=== PATIENT | male | born 1950 | race African-American/Black ===

== ENCOUNTER 2021-10-25 21:02 | Emergency (ER) | payer OTHER ==
[~2021-10-25] VITALS: Ht 177.8 cm; Wt 90.0 kg
[2021-10-25] MEDS ORDERED: LIDOCAINE 5% PATCH TOP SCH (22:00)
[2021-10-25] MEDS ORDERED: IBUPROFEN 400MG TABLET PO ONE (22:00)
[2021-10-25] MEDS ORDERED: METHOCARBAMOL 750MG TABLET PO SCH (22:00)
[2021-10-25] MEDS ORDERED: ACETAMINOPHEN 325MG TABLET PO ONE (22:00)
[2021-10-25 23:01] VITALS: BP 133/98
[2021-10-25] MEDS ORDERED: IBUP-2028 MT (23:26)
[2021-10-25] MEDS ORDERED: LIDO1ADH23 TP (23:26)
[2021-10-25] MEDS ORDERED: METH-653 MT (23:26)
[2021-10-25] MEDS ORDERED: TOPUD PO (23:26)
== END 2021-10-25 23:51 | disposition home or self-care (01) ==
LOC: ER 21:02
DX: R07.89 Other chest pain (principal); E11.9 Type 2 diabetes mellitus without complications; V49.49XA Driver injured in collision with other motor vehicles in traffic accident, initial encounter; Y93.89 Activity, other specified; Y92.89 Other specified places as the place of occurrence of the external cause; Y99.8 Other external cause status
CPT/HCPCS: 71045; 93005; 99284

== ENCOUNTER 2024-03-27 12:32 | Emergency (ER) | payer OTHER ==
[~2024-03-27] VITALS: Ht 182.9 cm; Wt 116.0 kg
[~2024-03-27 12:32] MED LIST: IBUP-2028 MT; LIDO1ADH23 TP; METH-653 MT; TOPUD PO
[2024-03-27 12:33] VITALS: O2SAT 100
[2024-03-27 13:00] VITALS: TEMP 36.83628
[2024-03-27 13:19] LABS: BASOPHILS % 0.6 % (0.0-2.0); EOSINOPHILS % 2.4 % (0.0-5.0); HEMATOCRIT. 40.2 % (42.0-52.0); HEMOGLOBIN. 13.3 g/dL (14.0-18.0); LYMPHOCYTES % 30.9 % (20.0-50.0); MEAN CORPUSCULAR HEMOGLOBIN 30.9 pg (28.0-32.0); MEAN CORPUSCULAR HGB CONC 33.1 g/dL (31.0-37.0); MEAN CORPUSCULAR VOLUME 93.5 fL (80.0-94.0); MEAN PLATELET VOLUME 9.2 fl (7.4-10.4); MONOCYTES % 10.7 % (2.0-8.0); NEUTROPHILS % 55.4 % (40.0-76.0); PLATELET 218 x1000/uL (130-400); RED CELL DISTRIBUTION WIDTH 13.1 % (11.6-14.6)
[2024-03-27 13:32] LABS: CHLORIDE 106 mEq/L (98-107); SODIUM 139 mEq/L (136-145)
[2024-03-27 13:33] LABS: CALCIUM 9.3 mg/dL (8.7-10.4); CARBON DIOXIDE 27 mEq/L (21-32)
[2024-03-27 13:38] LABS: CREATININE 1.2 mg/dL (0.6-1.3); GLUCOSE 153 mg/dL (70-105); UREA NITROGEN BLOOD 25 mg/dL (9-23)
[2024-03-27 13:39] LABS: TROPONIN I HIGH SENSITIVITY 6 ng/L (3.0-53)
[2024-03-27 13:42] LABS: T4 FREE 1.07 ng/dL (0.89-1.76); THYROID STIMULATING HORMONE 0.53 uIU/mL (0.55-4.78)
[2024-03-27] MEDS: SODIUM CHLORIDE 0.9% 250 ML IV ONE (13:59)
[2024-03-27 18:54] VITALS: BP 131/74; PULSE 49; RESP 14; O2SAT 95
== END 2024-03-27 18:52 | disposition short-term general hospital (02) ==
LOC: ER 12:36 → EDBEDREQ 12:56 → CANBEDREQ 14:48 → EDBEDREQ 16:52 → CANBEDREQ 17:12 → ER 18:52
DX: R42 Dizziness and giddiness (principal); I48.91 Unspecified atrial fibrillation; E11.9 Type 2 diabetes mellitus without complications; I10 Essential (primary) hypertension
CPT/HCPCS: 99285; 96360; 71045; 80048; 83880; 84439; 83735; 84443; 85025; 84484; 36415; 93005; J7050